=== PATIENT | female | born 1990 | race Caucasian/White ===

== ENCOUNTER 2017-01-15 18:49 | Emergency (ER) | payer BC, OTHER ==
[2017-01-15 19:01] VITALS: BP 126/76; PULSE 64; TEMP 98.3; BMI 26.5
[2017-01-15] MEDS ORDERED: TETRACAINE 0.5% OPHTH SOLN 2 ML BOTTLE ONE (20:07)
[2017-01-15] MEDS ORDERED: FLUORESCEIN NA 1 EA STRIP ONE (20:07)
--- NOTE | 2017-01-15 20:18 | PDOC ---
History of Present Illness - General Chief Complaint: Eye Problem Stated Complaint: LEFT EYE REDNESS, SWELLING Time Seen by Provider: 01/15/17 19:11 - History of Present Illness Initial Comments: This otherwise healthy 26-year-old woman presents with her mother with a 2 day history of progressive left eye discomfort/swelling/tearing. Patient states that she felt mild sensation of foreign body in her left eye yesterday. Today, she has had worsening discomfort along with clear discharge, increasing redness of her conjunctiva and mild edema of her eyelids. She denies headache or severe vision changes. She has had intermittent blurring of vision in her left eye but generally it has been unchanged. No history of foreign body in her eye and she does not wear contact lenses. No known contacts with people with acute conjunctivitis. She has not had any symptoms of a upper respiratory infection/fever or other acute symptoms. No recent travel. Past History - Past Medical History Allergies/Adverse Reactions: Allergies Allergy/AdvReac Type Severity Reaction Status Date / Time No Known Allergies Allergy Verified 01/15/17 18:51 Home Medications: Ambulatory Orders Ciprofloxacin 0.3% Eye Drops [Ciloxan 0.3% Eye Drops -] 2 drop OS Q4HWA #1 bottle 01/15/17 Norethindrone-E.estradiol-Iron [ Fe 24 Tablet] 1 each PO ASDIR 01/15/17 COPD: No Other medical history: DENIES - Suicide/Smoking/Psychosocial Hx Smoking History: Current some day smoker Have you smoked in the past 12 months: Yes Number of Cigarettes Smoked Daily: 10 Information on smoking cessation initiated: No 'Breaking Loose' booklet given: 01/15/17 Hx Alcohol Use: No Substance Use Type: None Review of Systems - Review of Systems Able to Perform ROS?: Yes Comments:: 12 point review of systems is negative except for what is noted in the history of present illness *Physical Exam - Vital Signs Last Vital Signs Temp Pulse Resp BP Pulse Ox 98.3 F 64 18 126/76 97 01/15/17 18:50 01/15/17 18:50 01/15/17 18:50 01/15/17 18:50 01/15/17 18:50 - Physical Exam Comments: GENERAL: HEAD: Normal with no signs of trauma. EYES: Right eye-normal Left eye-no crusting of lashes; no purulent discharge. Upper eyelid mildly edematous. Conjunctiva moderately erythematous. Pupil 3 mm and equal to right side; anterior chamber normal; no evidence of foreign body HEENT: Ears normal, nares patent, oropharynx clear without exudates. Moist mucous membranes. NECK: Normal range of motion, supple without lymphadenopathy, JVD, or masses. LUNGS: Breath sounds equal, clear to auscultation bilaterally. No wheezes, and no crackles. HEART:Regular rate and rhythm, normal S1 and S2 without murmur, rub or gallop. ABDOMEN:.normal bowel sounds No guarding,tenderness or rebound.No masses No distention. EXTREMITIES: Normal range of motion, no edema. No clubbing or cyanosis. No erythema, or tenderness. NEUROLOGICAL: Cranial nerves II through XII grossly intact. Normal speech. No focal neurological deficits. MUSCULOSKELETAL: Back non-tender to palpation, no CVA tenderness SKIN: Warm, Dry, normal turgor, no rashes or lesions noted. One drop of 0.1% tetracaine ophthalmic solution local anesthetic placed in the left eye. Fluorescein staining performed: No evidence of corneal abrasion/ laceration/ulcer Medical Decision Making - Medical Decision Making Clinical presentation most consistent with acute conjunctivitis of the left eye. Patient has no known ALLERGIES. Ciprofloxacin ophthalmic solution will be prescribed: 1-2 drops in the left eye every 4 hours while awake should be administered for the next week. Meanwhile, the patient should not work for the next 48 hours. She should follow-up with an cylinder block mechanic within the next 3-4 days. She should return to the ER if she has worsening symptoms or experiences severe vision changes. *DC/Admit/Observation/Transfer Diagnosis at time of Disposition: Acute conjunctivitis of left eye Qualifiers: Acute conjunctivitis type: unspecified Qualified Code(s): H10.32 - Unspecified acute conjunctivitis, left eye - Discharge Dispostion Disposition: HOME Condition at time of disposition: Stable - Prescriptions Prescriptions: Ciprofloxacin 0.3% Eye Drops [Ciloxan 0.3% Eye Drops -] 2 drop OS Q4HWA #1 bottle - Referrals - Patient Instructions Printed Discharge Instructions: Conjunctivitis Additional Instructions: Cipro eyedrops: 2 drops left eye every 4 hours while awake for the next week Carefully wash your hands after contact with your face Use your own towels/washcloths No work for the next 2 days Follow-up with your cylinder block mechanic within the next 3-4 days - Post Discharge Activity Forms/Work/School Notes: Back to Work
== END 2017-01-15 20:32 | disposition home or self-care (01) ==
LOC: FER 18:49
DX: H10.32 Unspecified acute conjunctivitis, left eye (principal); F17.210 Nicotine dependence, cigarettes, uncomplicated
CPT/HCPCS: 99283-25